=== PATIENT | female | born 1985 | race African-American/Black ===

== ENCOUNTER 2017-03-22 10:23 | Emergency (ER) | payer OTHER ==
[~2017-03-22 10:23] MED LIST: AMOXICILLIN500 M1 PO; CELEXA PO; FLEXERIL PO; FLEXERIL10 MG PO; KEFLEX PO; MOBIC PO; ORTHO TRI-7 DAYSX 3 PO; PRENATAL1 TA1 PO; REGLAN10 MG PO
== END 2017-03-22 14:28 | disposition home or self-care (01) ==
LOC: CED 10:23 → CFTX 10:23
DX: K05.219 Aggressive periodontitis, localized, unspecified severity (principal); F32.9 Major depressive disorder, single episode, unspecified; M54.9 Dorsalgia, unspecified; G89.29 Other chronic pain
CPT/HCPCS: 41800; 99283